=== PATIENT | female | born 1990 | race Two or more races ===

== ENCOUNTER 2023-12-18 19:52 | Emergency (ER) | payer BC, OTHER ==
[~2023-12-18] VITALS: Ht 165.1 cm; Wt 67.2 kg
[2023-12-18] MEDS: ACETAMINOPHEN 500 MG TAB PO ONE (20:10)
[2023-12-18 20:33] LABS: COVID19 ANTIGEN SOFIA FIA NEGATIVE (NEGATIVE)
[2023-12-18 20:35] LABS: Rapid Influenza A Negative (Negative); Rapid Influenza B Positive (Negative)
[2023-12-19 01:40] VITALS: BP 140/74; PULSE 78; RESP 20; TEMP 98.8; O2SAT 98
[2023-12-19] MEDS ORDERED: ACET500T58 PO (01:43)
[2023-12-19] MEDS ORDERED: OSEL75CA5 PO (01:43)
== END 2023-12-19 02:07 | disposition home or self-care (01) ==
LOC: ER 19:52
DX: J10.1 Influenza due to other identified influenza virus with other respiratory manifestations (principal); Z20.822 Contact with and (suspected) exposure to COVID-19
CPT/HCPCS: 36415; 87426; 87804

== ENCOUNTER 2025-04-08 07:05 | Inpatient (IN) | payer BC ==
[~2025-04-08] VITALS: Ht 165.1 cm; Wt 70.1 kg
[~2025-04-08 07:05] MED LIST: ACET500T58 PO; OSEL75CA5 PO
--- NOTE | 2025-04-08 07:30 | ED.PDOC ---
GI ASSESSMENT HPI Comments This is a 35 year old female presenting to the ED with chief complaint of abdominal pain. Patient reports that she has been experiencing diffuse abdominal pain with associated fevers, nausea, vomiting, and watery diarrhea since 2am this morning. Patient relays that her pain is intermittent at this time. Patient denies any chills, dizziness, headache, syncope, dysuria, flank pain, chest pain, or SOB. Chief Complaint: Abdominal Pain Time Seen by MD: 07:28 Primary Care Provider: UNKNOWN Reviewed Notes: Nurses Notes, Medications, Allergies Allergies: Coded Allergies: NO KNOWN ALLERGIES (Unverified , 12/18/23) Home Meds Active Scripts Acetaminophen (Acetaminophen) 500 Mg Tab, 500 MG PO Q4HPRN, #30 TAB 0 Refills Prov:JUAN PERALTA 12/19/23 Oseltamivir Phosphate (Tamiflu) 75 Mg Cap, 1 CAP PO BID for 5 Days, #10 CAP 0 Refills Prov:JUAN PERALTA 12/19/23 Information Source: Patient Mode of Arrival: Ambulatory Timing: Hours Duration: Since onset Prehospital treatment: None Quality: Sharp Vomitus: Watery Stool: Watery Severity: Moderate Recent: None Recent Hx of: None Pain Location: Diffuse Modifying Factors: Nothing Associated sign and symptoms: Nausea, Vomiting, Diarrhea, Abdominal Pain Past Medical History PAST MEDICAL HISTORY: Denies Surgical History: Denies all surgeries PHOTO MASK CLEANER History: No Pertinent PHOTO MASK CLEANER History Family History Family History: Reviewed,noncontributory to illness, Unknown Social History Smoker: Non-Smoker Alcohol: Denies ETOH Use Drugs: Denies Drug Use Lives In: Home Constitutional: reports: fever; denies: chills, diaphoresis, fatigue, malaise, sweats, weakness, others EENTM: denies: blurred vision, double vision, ear bleeding, ear discharge, ear drainage, ear pain, ear ringing, eye pain, eye redness, hearing loss, mouth pain, mouth swelling, nasal discharge, nose bleeding, nose congestion, nose pain, photophobia, tearing, throat pain, throat swelling, voice changes, others Respiratory: denies: cough, hemoptysis, orthopnea, SOB at rest, shortness of breath, SOB with excertion, stridor, wheezing, others Cardiovascular: denies: chest pain, dizzy spells, diaphoresis, Dyspnea on exertion, edema, irregular heart beat, left arm pain, lightheadedness, palpitations, PND, syncope, others Gastrointestinal: reports: abdominal pain, diarrhea, nausea, vomiting; denies: abdomen distended, blood streaked bowels, constipated, dysphagia, difficulty swa llowing, hematemesis, melena, poor appetite, poor fluid intake, rectal bleeding, rectal pain, others Genitourinary: denies: abnormal vagina bleeding, burning, dyspareunia, dysuria, flank pain, frequency, hematuria, incontinence, pain, , vagina discharge, urgency, others Neurological: denies: dizziness, fainting, headache, left sided numbness, left sided weakness, numbness, paresthesia, pre-existing deficit, right sided numbness, right sided weakness, seizure, speech problems, tingling, tremors, weakness, others Musculoskeletal: denies: back pain, gout, joint pain, joint swelling, muscle pain, muscle stiffness, neck pain, others Integumetry: denies: bruises, change in color, change in hair/nails, dryness, laceration, lesions, lumps, rash, wounds, others Allergic/Immunocompromised: denies: Difficulty Healing, Frequent Infections, Hives, Itching, others Hematologic/Lymphatic: denies: anemia, blood clots, easy bleeding, easy bruising, swollen glands, others Endocrine: denies: excessive hunger, excessive sweating, excessive thirst, excessive urination, flushing, intolerance to cold, intolerance to heat, un explained weight gain, unexplained weight loss, others Psychiatric: denies: anxiety, bipolar disorder, depression, hopeless, panic disorder, schizophrenia, sleepless, suicidal, others All Other Systems: Reviewed and Negative Physical Exam General Appearance: Moderate Distress, Normal HEENT: Normal ENT Inspection, Pharynx Normal, TMs Normal Neck: Full Range of Motion, Non-Tender, Normal, Normal Inspection Respiratory: Chest Non-Tender, Lungs Clear, No Accessory Muscle Use, No Respiratory Distress, Normal Breath Sounds Cardiovascular: No Edema, No JVD, No Murmur, No Gallop, Normal Peripheral Pulse s, Regular Rate/Rhythm Breast Exam: Deferred Gastrointestinal: No Organomegaly, Non Tender, No Pulsatile Mass, Normal Bowel Sounds, Soft Genitalia: Deferred Pelvic: Deferred Rectal: Deferred Extremities: No calf tenderness, Normal capillary refill, Normal inspection, Normal range of motion, Non-tender, No pedal edema Musculoskeletal : Apperance: Normal Neurologic: Alert, circuit design engineer II-XII nml as Tested, No Motor Deficits, Normal Affect, Normal Mood, No Sensory Deficits Cerebellar Function: Normal Reflexes: Normal Skin: Dry, Normal Color, Warm Peripheral Pulses: 3+ Radial (R), 3+ Radial (L) Lymphatic: No Adenopathy Was a procedure done? Was a procedure done?: No GI differential Dx Differential Diagnosis: Constipation, Diverticular disease, Esophagitis, Gastritis/PUD, Gastroenteritis, UTI, Dehydration, Electrolyte Imbalance, Food Poisoning, Bacterial, Viral X-Ray, Labs, Meds, VS Vital Signs Date Time Temp Pulse Resp B/P (MAP) Pulse Ox O2 Delivery O2 Flow Rate FiO2 04/08/25 08:09 97.9 84 19 101/69 (80) 97 97.9 04/08/25 08:09 84 19 97 Room Air 04/08/25 07:12 97.7 93 18 113/83 100 97.7 Lab Test 04/08/25 08:00 04/08/25 07:30 04/08/25 07:11 Range/Units Urine Test Negative Negative White Blood Count 19.4 H 4.4-10.8 10^3/uL Red Blood Count 5.33 H 4.0-5.20 10^6/uL Hemoglobin 16.1 12.2-16.2 g/dL Hematocrit 46.4 H 36.0-46.0 % Mean Corpuscular Volume 87.1 80.0-100.0 fL Mean Corpuscular Hemoglobin 30.2 28.0-32.0 pg Mean Corpuscular Hemoglobin Concent 34.7 32.0-36.0 g/dL Red Cell Distribution Width 12.7 11.8-14.3 % Platelet Count 278 140-450 10^3/uL Mean Platelet Volume 8.3 6.9-10.8 fL Neutrophils (%) (Auto) 82.7 H 37.0-80.0 % Lymphocytes (%) (Auto) 11.6 10.0-50.0 % Monocytes (%) (Auto) 4.9 0.0-12.0 % Eosinophils (%) (Auto) 0.5 0.0-7.0 % Basophils (%) (Auto) 0.3 0.0-2.0 % Neutrophils # (Auto) 16.1 H 1.6-8.6 10 ^3/uL Lymphocytes # (Auto) 2.3 0.4-5.4 10 ^3/uL Monocytes # (Auto) 0.9 0-1.3 10 ^3/uL Eosinophils # (Auto) 0.1 0-0.8 10 ^3/uL Basophils # (Auto) 0.1 0-0.2 10 ^3/uL Nucleated Red Blood Cells 0.4 % Sodium Level 140 136-145 mmol/L Potassium Level 4.0 3.5-5.1 mmol/L Chloride Level 109 H 98-107 mmol/L Carbon Dioxide Level 21 20-31 mmol/L Anion Gap 10 5-15 Blood Urea Nitrogen 10 9-23 mg/dL Creatinine 0.91 0.550-1.02 mg/dL Glomerular Filtration Rate Calc 83 >90 mL/min BUN/Creatinine Ratio 11.0 10.0-20.0 Serum Glucose 103 74-106 mg/dL Calcium Level 10.1 8.7-10.4 mg/dL Urine Color Light-yellow Yellow Urine Clarity Turbid H Clear Urine pH 5.0 5.0-9.0 Urine Specific [place] 1.023 1.001-1.035 Urine Protein Negative Negative Urine Ketones 1+ H Negative Urine Blood 1+ H Negative /uL Urine Nitrite Negative Negative Urine Bilirubin Negative Negative Urine Urobilinogen Normal Negative mg/dL Urine Leukocyte Esterase 2+ Negative /uL Urine RBC 13 0 - 4 /hpf Urine Microscopic WBC 11 H 0-5 /HPF Urine Squamous Epithelial Cells Few <5 /hpf Urine Uric Acid Crystals Few None Seen /hpf Urine Bacteria None seen None Seen /hpf Urine Hyaline Casts Few 0 - 2 /lpf Urine Mucus Few None Seen Urine Glucose Normal Normal mg/dL Current Medications Medications (Trade) Dose Ordered Sig/Pedro Luis Route Start Time Stop Time Status Last Admin Diphenoxylate HCl/ Atropine (Lomotil Tablet) 5 mg ONCE ONCE PO 04/08/25 07:45 04/08/25 07:46 DC 04/08/25 07:58 Ondansetron HCl (Zofran Po) 4 mg ONCE ONCE PO 04/08/25 07:45 04/08/25 07:46 DC 04/08/25 07:58 Sodium Chloride 1,000 ml @ 1,000 mls/hr Q1H ONCE IV 04/08/25 08:00 04/08/25 08:59 DC 04/08/25 08:16 Patient alert. Complaining of abdominal pain nausea vomiting diarrhea. Vitals stable. Answering questions. WBC elevated. Establish intravenous access. Was given fluids. Was given Zofran. Was given Lomotil. Was given Flagyl. Abdomen is soft. Continues to have abdominal pain. Explained to the patient. Continue monitoring. Was given Rocephin. Was given Flagyl. Time of 1ST Reevaluation: 08:27 Reevaluation 1ST: Improved Patient Education/Counseling: Diagnosis, Treatment Family Education/Counseling: No Family Present SEPSIS Sepsis Screen Date sepsis recognized/suspect: Apr 08, 2025 Time Sepsis recognized/suspect: 712 Recent Procedure: No On Antibiotic Therapy: No Respiratory Rate >20: No Heart Rate >90: Yes Temp<36 C (96.8 F) or >38.3 C: No SBP <90 or MAP <65 mmHG: No New Acute Mental Status Change: No Is the patient on CPAP, BIPAP,: No Physician Orders Ct Ab Pel Wo Con-No Oral Or Iv (04/08/25 07:57) Saline Lock (04/08/25 07:58) Vital Signs Date Time Temp Pulse Resp B/P (MAP) Pulse Ox O2 Delivery O2 Flow Rate FiO2 04/08/25 08:09 97.9 84 19 101/69 (80) 97 97.9 04/08/25 08:09 84 19 97 Room Air 04/08/25 07:12 97.7 93 18 113/83 100 97.7 Laboratory Tests Test 04/08/25 07:30 White Blood Count 19.4 10^3/uL (4.4-10.8) H Medications Medications Dose Ordered Sig/Pedro Luis Route Start Time Stop Time Status Last Admin Dose Admin Diphenoxylate HCl/ Atropine 5 mg ONCE ONCE PO 04/08/25 07:45 04/08/25 07:46 DC 04/08/25 07:58 Ondansetron HCl 4 mg ONCE ONCE PO 04/08/25 07:45 04/08/25 07:46 DC 04/08/25 07:58 Sodium Chloride 1,000 ml @ 1,000 mls/hr Q1H ONCE IV 04/08/25 08:00 04/08/25 08:59 DC 04/08/25 08:16 Departure 1 Departure Time of Disposition: 07:56 Impression: Primary Impression: Acute abdominal pain Additional Impression: Gastroenteritis Disposition: 09 ADMITTED INPATIENT Admit to: Med Surg Condition: Guarded Critical Care Note Critical Care Time?: Yes (90 min-critical care time only) Critical care comment: WBC elevated abdominal pain Stability Stability form required: No Heart Score Heart Score: Heart Score Response (Comments) Value History N/A 0 EKG N/A 0 Age N/A 0 Risk Factors N/A 0 Troponin N/A 0 Total 0 I personally scribed for JEANNINE BARBOUR MD ([email or web address]) on 04/08/25 at 07:30. Electronically submitted by Georgi Solorzano ([email or web address]). JEANNINE BARBOUR MD Apr 08, 2025 07:30
[2025-04-08 07:51] LABS: Hematocrit 46.4 % (36.0-46.0); Hemoglobin 16.1 g/dL (12.2-16.2); Mean Corpuscular Hemoglobin 30.2 pg (28.0-32.0); Mean Corpuscular Volume 87.1 fL (80.0-100.0); Nucleated Red Blood Cells % 0.4 %
[2025-04-08 07:55] LABS: Potassium 4.0 mmol/L (3.5-5.1); Sodium 140 mmol/L (136-145)
[2025-04-08 07:56] LABS: Anion Gap 10 (5-15); Carbon Dioxide 21 mmol/L (20-31)
[2025-04-08 07:57] LABS: Calcium 10.1 mg/dL (8.7-10.4); Chloride 109 mmol/L (98-107)
[2025-04-08] MEDS: DIPHENOXYLATE W/ATROPINE 2.5 MG TAB PO ONE (07:58)
[2025-04-08] MEDS: ONDANSETRON ODT 4 MG TAB PO ONE (07:58)
[2025-04-08 08:01] LABS: BUN/Creatinine Ratio 11.0 (10.0-20.0); Blood Urea Nitrogen 10 mg/dL (9-23); Glucose 103 mg/dL (74-106)
[2025-04-08] MEDS: SODIUM CHLORIDE 0.9% 1,000 ML IV ONE (08:16)
[2025-04-08 10:36] LABS: Urine Protein, UAD Negative (Negative)
--- NOTE | 2025-04-08 12:07 | DVH ---
Exam: CT CT AB PEL WO CON-NO ORAL OR IV History: enteritis Comparison Study: None Technique: Multidetector spiral CT of the abdomen and pelvis was performed from lung bases to pubic s ymphysis. Imaging was performed without intravenous contrast. Coronal and sagittal multiplanar reform ats were obtained from the axial data set by the technologist. Radiation Dose : 1. Abdomen/Pelvis: CTDIvol 6.93 mGy, DLP 6.93 mGy*cm. Findings: Evaluation of vasculature and solid organs is limited due to lack of intravenous contrast use. Lung Bases: Hazy right basilar ground-glass opacities. Visualized portions of the heart and pericardi um are unremarkable. Liver: The liver is normal in size. No focal lesions. Gallbladder and Biliary Tree: The gallbladder is unremarkable. No intrahepatic or extrahepatic biliar y ductal dilatation. Spleen: Unremarkable Pancreas: The pancreas is grossly unremarkable. Adrenal Glands: Unremarkable Kidneys: Kidneys are unremarkable without calculi or hydronephrosis. GI tract: The stomach is grossly normal in appearance. Fluid-filled small bowel loops with fat strand ing and mild wall thickening. The colon is unremarkable. No evidence of acute appendicitis. Peritoneum/mesentery/retroperitoneum. No evidence of free intraperitoneal air. No ascites. No evidenc e of suspicious lymphadenopathy. Abdominal Wall: Unremarkable. Vasculature: The visualized abdominal aorta is normal in size and caliber. Evaluation of abdominal a nd pelvic vessels is limited due to lack of intravenous contrast. Urinary Bladder: Grossly unremarkable for degree of distention. Pelvic Organs: Unremarkable Musculoskeletal: No aggressive focal bony lesions, acute fractures or dislocation. IMPRESSION: 1. Findings compatible with acute enteritis. No small bowel obstruction.
[2025-04-08] MEDS ORDERED: NITROGLYCERIN 0.4 MG SL TAB SL PRN (12:45)
[2025-04-08] MEDS ORDERED: MORPHINE SULFATE INJ 2 MG/ml SYRG IV PRN (12:45)
[2025-04-08] MEDS ORDERED: DOCUSATE SOD 100 MG CAP PO PRN (12:45)
[2025-04-08] MEDS ORDERED: ONDANSETRON HCL 4 MG/2 ML VIAL IV PRN (12:45)
[2025-04-08] MEDS: cefTRIAXone 1GM/50ML D5W 50 ML IV ONE (12:52)
[2025-04-08 12:57] VITALS: PULSE 81; RESP 12; O2SAT 96
--- NOTE | 2025-04-08 14:10 | DVHHP2 ---
History of Present Illness Reason for Visit: abd pain diarrhea History of Present Illness 35-year-old female with no known past medical history presents with generalized abdominal pain and fever since approximately 2:00 AM today. She denies diarrhea, nausea, vomiting, chest pain, or shortness of breath. Pain is intermittent and improves somewhat with movement. She ate a normal dinner last night with no changes in diet. She has had no recent sick contacts, travel, or antibiotic use. In the ED, vitals showed fever. Laboratory workup revealed leukocytosis (WBC 19.4), otherwise unremarkable CBC and BMP. Urinalysis showed ketones, blood, and trace bacteria. CT abdomen/pelvis demonstrated findings compatible with acute enteritis. She was started on IV fluids and pain control in the ED. will admit for iv hydration and antibotics Past Medical History See HPI above Past Surgical History See HPI above Family History Reviewed, non-contributory to the management of this case. Past Social History The patient lives at home, denies smoking, alcohol or illicit drugs abuse. Review of Systems Constitutional: No: Fever, Chills, Sweats, Weakness, Malaise, Other Eyes: No: Pain, Vision change, Conjunctivae inflammation, Eyelid inflammation, Other, Redness ENT: No: Ear pain, Ear discharge, Nose pain, Nose discharge, Nose congestion, Mouth pain, Mouth swelling, Throat pain, Throat swelling, Other Respiratory: No: Cough, Dry, Shortness of breath, SOB with excertion, Wheezing, Hemoptysis, Pleuritic Pain, Sputum, Wheezing, Other Cardiovascular: No: Chest Pain, Palpitations, Orthopnea, Paroxysmal Noc. Dyspnea, Edema, Lt Headedness, Other Gastrointestinal: Nausea, Vomiting, Abdominal Pain, Diarrhea; No: Constipation, Melena, Hematochezia, Other Genitourinary: No Dysuria, No Frequency, No Incontinence, No Hematuria, No Retention, No Other Musculoskeletal: No: other, neck pain, shoulder pain, arm pain, back pain, hand pain, leg pain, foot pain Skin: No: Rash, Lesions, Jaundice, Bruising, Other Neurological: No: Weakness, Numbness, Incoordination, Change in speech, Confusion, Seizures, Other Allergies: Coded Allergies: NO KNOWN ALLERGIES (Unverified , 12/18/23) Medications Current Medications Medications Dose Ordered Sig/Pedro Luis Route Start Time Stop Time Status Last Admin Dose Admin Sodium Chloride 1,000 ml @ 120 mls/hr Q8H20M IV 04/08/25 12:45 UNV Ondansetron HCl 4 mg Q4HP PRN IV 04/08/25 12:45 UNV Docusate Sodium 100 mg BIDPRN PRN PO 04/08/25 12:45 UNV Morphine Sulfate 2 mg Q4HPRN PRN IV 04/08/25 12:45 UNV Nitroglycerin 0.4 mg Q5MINP PRN SL 04/08/25 12:45 UNV Piperacillin Sod/ Tazobactam Sod 100 ml @ 25 mls/hr Q6HR IV 04/08/25 18:00 UNV Exam Vital Signs Vital Signs Date Time Temp Pulse Resp B/P (MAP) Pulse Ox O2 Delivery O2 Flow Rate FiO2 04/08/25 12:57 81 12 96 Room Air* 0 21 04/08/25 12:56 100/63 (75) 04/08/25 08:09 97.9 97.9 General Appearance: Alert, Oriented X3, Cooperative, No acute distress HEENT: Atraumatic, PERRLA, EOMI, Mucous membr. moist/pink Respiratory: Clear to auscultation, Normal air movement Cardiovascular: Regular rate, Normal S1, Normal S2, No murmurs Abdominal: Normal bowel sounds, Soft, No tenderness, No hepatospenomegaly, No masses Extremities: No clubbing, No cyanosis, No edema, Normal pulses, No tenderness/swelling Skin: No rashes, No breakdown, No significant lesion Neuro: Normal gait, Normal speech, Strength at 5/5 X4 ext, Normal tone, Sensation intact, Cranial nerves 3-12 NL Psych/Mental Status: Mental status NL, Mood NL Labs/Xrays CT scan showed enteritis I reviewed labs, imaging CT scan abdomen pelvis, EKG and all diagnostic studies on this patient from ED records and the medical chart Labs Test 04/08/25 08:00 04/08/25 07:30 04/08/25 07:11 Range/Units Urine Test Negative Negative White Blood Count 19.4 H 4.4-10.8 10^3/uL Red Blood Count 5.33 H 4.0-5.20 10^6/uL Hemoglobin 16.1 12.2-16.2 g/dL Hematocrit 46.4 H 36.0-46.0 % Mean Corpuscular Volume 87.1 80.0-100.0 fL Mean Corpuscular Hemoglobin 30.2 28.0-32.0 pg Mean Corpuscular Hemoglobin Concent 34.7 32.0-36.0 g/dL Red Cell Distribution Width 12.7 11.8-14.3 % Platelet Count 278 140-450 10^3/uL Mean Platelet Volume 8.3 6.9-10.8 fL Neutrophils (%) (Auto) 82.7 H 37.0-80.0 % Lymphocytes (%) (Auto) 11.6 10.0-50.0 % Monocytes (%) (Auto) 4.9 0.0-12.0 % Eosinophils (%) (Auto) 0.5 0.0-7.0 % Basophils (%) (Auto) 0.3 0.0-2.0 % Neutrophils # (Auto) 16.1 H 1.6-8.6 10 ^3/uL Lymphocytes # (Auto) 2.3 0.4-5.4 10 ^3/uL Monocytes # (Auto) 0.9 0-1.3 10 ^3/uL Eosinophils # (Auto) 0.1 0-0.8 10 ^3/uL Basophils # (Auto) 0.1 0-0.2 10 ^3/uL Nucleated Red Blood Cells 0.4 % Sodium Level 140 136-145 mmol/L Potassium Level 4.0 3.5-5.1 mmol/L Chloride Level 109 H 98-107 mmol/L Carbon Dioxide Level 21 20-31 mmol/L Anion Gap 10 5-15 Blood Urea Nitrogen 10 9-23 mg/dL Creatinine 0.91 0.550-1.02 mg/dL Glomerular Filtration Rate Calc 83 >90 mL/min BUN/Creatinine Ratio 11.0 10.0-20.0 Serum Glucose 103 74-106 mg/dL Calcium Level 10.1 8.7-10.4 mg/dL Urine Color Light-yellow Yellow Urine Clarity Turbid H Clear Urine pH 5.0 5.0-9.0 Urine Specific [place] 1.023 1.001-1.035 Urine Protein Negative Negative Urine Ketones 1+ H Negative Urine Blood 1+ H Negative /uL Urine Nitrite Negative Negative Urine Bilirubin Negative Negative Urine Urobilinogen Normal Negative mg/dL Urine Leukocyte Esterase 2+ Negative /uL Urine RBC 13 0 - 4 /hpf Urine Microscopic WBC 11 H 0-5 /HPF Urine Squamous Epithelial Cells Few <5 /hpf Urine Uric Acid Crystals Few None Seen /hpf Urine Bacteria None seen None Seen /hpf Urine Hyaline Casts Few 0 - 2 /lpf Urine Mucus Few None Seen Urine Glucose Normal Normal mg/dL SEPSIS Sepsis Screen Date sepsis recognized/suspect: Apr 08, 2025 Time Sepsis recognized/suspect: 1331 Recent Procedure: No On Antibiotic Therapy: No Respiratory Rate >20: No Heart Rate >90: No Temp<36 C (96.8 F) or >38.3 C: No SBP <90 or MAP <65 mmHG: No New Acute Mental Status Change: No Is the patient on CPAP, BIPAP,: No Physician Orders Ct Ab Pel Wo Con-No Oral Or Iv (04/08/25 07:57) Saline Lock (04/08/25 07:58) Admit (04/08/25 12:44) Allergies (04/08/25 12:44) Code Status (04/08/25 12:44) Sodium Chloride 0.9% (04/08/25 12:45) Oxygen Per Hour (04/08/25 12:44) Ondansetron Hcl (Zofran) (04/08/25 12:45) Complete Blood Count (04/09/25 04:00) Comprehensive Metabolic Panel (04/09/25 04:00) Condition: Stable (04/08/25 12:44) Clear Liq Diet (04/08/25 Lunch) BRP (04/08/25 12:44) Morphine Sulfate Injection (04/08/25 12:45) Sequential Compression Device (04/08/25 ) Nitroglycerin Sublingual (Ntrostat Subli (04/08/25 12:45) Stat Ekg For Chest Pain (04/08/25 12:44) Notify Md Of Changes From Base (04/08/25 12:44) Office Support Clerk For 24 Hours (04/08/25 12:44) Emergency Dysrhythmia Protocol (04/08/25 12:44) Rhythm Strips Once Every Shift (04/08/25 12:44) Oxygen By Nasal Cannula (04/08/25 12:44) Piperacillin-Tazob 3.375gm (Zosyn 3.375g (04/08/25 18:00) Piperacillin-Tazob 3.375gm (Zosyn 3.375g (04/08/25 12:45) Docusate Sodium Capsule (Colace Capsule) (04/08/25 12:45) Vital Signs Date Time Temp Pulse Resp B/P (MAP) Pulse Ox O2 Delivery O2 Flow Rate FiO2 04/08/25 12:57 81 12 96 Room Air* 0 21 04/08/25 12:56 81 12 100/63 (75) 96 04/08/25 08:09 97.9 84 19 101/69 (80) 97 97.9 04/08/25 08:09 84 19 97 Room Air 04/08/25 07:12 97.7 93 18 113/83 100 97.7 Laboratory Tests Test 04/08/25 07:30 White Blood Count 19.4 10^3/uL (4.4-10.8) H Medications Medications Dose Ordered Sig/Pedro Luis Route Start Time Stop Time Status Last Admin Dose Admin Ceftriaxone Sodium 50 ml @ 100 mls/hr ONCE ONCE IV 04/08/25 11:45 04/08/25 12:14 DC 04/08/25 12:52 100 MLS/HR Diphenoxylate HCl/ Atropine 5 mg ONCE ONCE PO 04/08/25 07:45 04/08/25 07:46 DC 04/08/25 07:58 5 MG Metronidazole 100 ml @ 100 mls/hr ONCE ONCE IV 04/08/25 11:45 04/08/25 12:44 DC 04/08/25 13:20 100 MLS/HR Ondansetron HCl 4 mg ONCE ONCE PO 04/08/25 07:45 04/08/25 07:46 DC 04/08/25 07:58 4 MG Sodium Chloride 1,000 ml @ 1,000 mls/hr Q1H ONCE IV 04/08/25 08:00 04/08/25 08:59 DC 04/08/25 08:16 1,000 MLS/HR Assessment/Plan Assessment/Plan 35 yr old male pmh Acute enteritis with leukocytosis, requiring IV antibiotics, IV hydration, and inpatient monitoring. Acute Enteritis found on ct scan Admit for IV antibiotics and hydration. Initiate empiric coverage with IV zosyn; Monitor for worsening abdominal pain, guarding, or peritoneal signs. ordered c diff acute Leukocytosis Likely secondary to infectious process. Monitor with daily CBC and clinical status. cont antibiotics zosyn for now acute Hematuria Possibly incidental or related to dehydration; monitor. Repeat urinalysis after treatment. acute Ketonuria related to dehydration Likely from poor oral intake and dehydration. Continue IV hydration, encourage oral fluids as tolerated. FEN / PPx Fluids: IV NS at maintenance rate Electrolytes: Daily BMP; replete abnormalities Nutrition: Regular diet as tolerated DVT Prophylaxis: SCDs GI Prophylaxis: Pantoprazole 40 mg IV daily f Disposition Admit to medical-surgical unit for IV antibiotics, IV hydration, and monitoring for clinical improvement or signs of complication. Plan discussed with: Patient My Orders Orders - PAULO MARTIN DNP Procedure Category Date Status Time Admit ADMIT 04/08/25 Transmitted 12:44 Allergies [facility] 04/08/25 In Process 12:44 Code Status CODE 04/08/25 Transmitted 12:44 Sodium Chloride 0.9% PHA 04/08/25 Logged 12:45 Oxygen Per Hour RT 04/08/25 Transmitted 12:44 Ondansetron Hcl PHA 04/08/25 Logged (Zofran) 12:45 Complete Blood Count LAB 04/09/25 Verified 04:00 Comprehensive LAB 04/09/25 Verified Metabolic Panel 04:00 Condition: Stable [facility] 04/08/25 In Process 12:44 Clear Liq Diet DIET 04/08/25 Transmitted Lunch BRP [facility] 04/08/25 In Process 12:44 Morphine Sulfate [facility] 04/08/25 Logged Injection 12:45 Sequential [facility] 04/08/25 In Process Compression Device Nitroglycerin [facility] 04/08/25 Logged Sublingual (Ntrostat 12:45 Stat Ekg For Chest [facility] 04/08/25 In Process Pain 12:44 Notify Md Of Changes [facility] 04/08/25 In Process From Base 12:44 Office Support Clerk For [facility] 04/08/25 In Process 24 Hours 12:44 Emergency Dysrhythmia [facility] 04/08/25 In Process Protocol 12:44 Rhythm Strips Once [facility] 04/08/25 In Process Every Shift 12:44 Oxygen By Nasal RT 04/08/25 Transmitted Cannula 12:44 Piperacillin-Tazob PHA 04/08/25 Logged 3.375gm (Zosyn 3.375g 18:00 Piperacillin-Tazob PHA 04/08/25 Logged 3.375gm (Zosyn 3.375g 12:45 Docusate Sodium PHA 04/08/25 Logged Capsule (Colace 12:45 Date of Service: Apr 08, 2025 Billing Provider: PAULO MARTIN DNP Common Visit Codes: [id number] INP/OBS CARE (HIGH) PAULO MARTIN DNP Apr 08, 2025 14:10
[2025-04-08] MEDS: PIPERACILLIN-TAZOB 3.375GM 100 ML IV ONE (15:59)
[2025-04-08] MEDS: SODIUM CHLORIDE 0.9% 1,000 ML IV SCH (15:59)
[2025-04-08 18:41] VITALS: BP 123/81; PULSE 92; RESP 20; TEMP 98; O2SAT 95
[2025-04-08] MEDS: PIPERACILLIN-TAZOB 3.375GM 100 ML IV SCH (19:30)
[2025-04-08 20:00] VITALS: PULSE 65; RESP 16
[2025-04-09] VITALS (8 sets, daily range): BP systolic 99–110; BP diastolic 66–71; PULSE 72–93; RESP 16–20; TEMP 97.8–99.1; O2SAT 96–99
[2025-04-09 06:11] LABS: Hematocrit 39.0 % (36.0-46.0); Hemoglobin 13.7 g/dL (12.2-16.2); Mean Corpuscular Hemoglobin 30.5 pg (28.0-32.0); Mean Corpuscular Volume 86.9 fL (80.0-100.0); Nucleated Red Blood Cells % 0.0 %
[2025-04-09 06:28] LABS: Alanine Aminotransferase 11 U/L (7-40); Albumin 3.7 g/dL (3.2-4.8); Alkaline Phosphatase 43 U/L (46-116); Anion Gap 10 (5-15); BUN/Creatinine Ratio 7.1 (10.0-20.0); Bilirubin, Total 1.0 mg/dL (0.2-1.0); Blood Urea Nitrogen 6 mg/dL (9-23); Calcium 8.7 mg/dL (8.7-10.4); Carbon Dioxide 22 mmol/L (20-31); Chloride 108 mmol/L (98-107); Glucose 85 mg/dL (74-106); Potassium 3.7 mmol/L (3.5-5.1); Sodium 140 mmol/L (136-145); Total Protein 5.9 g/dL (5.7-8.2)
--- NOTE | 2025-04-09 14:34 | DVHPNRES ---
Progress Note Date Seen: Apr 09, 2025 Resident Creating Document: MARLENE HAHN Medical Necessity Reason Pt with a Central, PICC or Fol: No Subjective Review of Systems Patient is a 35 years old female with past medical history of Chlamydia presents to ED for Abdominal pain, nausea vomiting. Patient report that she ate uncooked chicken yesterday 9:00 p.m., since then have developed abdominal pain and diarrhea and has had multiple episodes of vomiting and 11 BM watery over the last past 24 hours. She has had no recent antibiotic use, sick contact or travel. Urinalysis shows ketones, blood, and trace bacteria. CT abdomen/pelvis demonstrated finding compatible with acute enteritis. Initial WBC was 19.4 H. Past Medical History Chlamydia (diagnosed at 2011) Past Surgical History See HPI above Family History Reviewed, non-contributory to the management of this case. Past Social History The patient lives at home, denies smoking, alcohol or illicit drugs abuse. Patient seen and examined at bedside. Patient is alert and oriented to time, place person and responding to all questions. Eyes: No Pain, No Vision change, No Conjunctivae inflammation, No Eyelid inflammation, No Other, No Redness ENT: No Ear pain, No Ear discharge, No Nose pain, No Nose discharge, No Nose congestion, No Mouth pain, No Mouth swelling, No Throat pain, No Throat swelling, No Other Cardiovascular: No Chest Pain, No Palpitations, No Orthopnea, No Paroxysmal No Dyspnea, No Edema, No Lt Headedness, No Other Respiratory: No Cough, No Dry, No Shortness of breath, No SOB with exertion, No Wheezing, No Hemoptysis, No Pleuritic Pain, No Sputum, No Other Gastrointestinal: Nausea, Vomiting, Abdominal Pain, Diarrhea, No Constipation, No Melena, No Hematochezia, No Other Genitourinary: No Dysuria, No Frequency, No Incontinence, No Hematuria, No Retention, No Other Musculoskeletal: No other, No neck pain, No shoulder pain, No arm pain, No back pain, No hand pain, No leg pain, No foot pain Skin: No Rash, No Lesions, No Jaundice, No Bruising, No Other Objective vital signs Vital Sign Date Time Temp Pulse Resp B/P (MAP) Pulse Ox O2 Delivery O2 Flow Rate FiO2 04/09/25 12:59 98.7 93 20 104/68 (80) 99 98.7 04/09/25 08:00 Room Air* 0 98 21 Total Intake and Output 04/08/25 04/08/25 04/09/25 15:00 23:00 07:00 Intake Total 1150 ml 200 ml 250 ml Balance 1150 ml 200 ml 250 ml medications Current Medications Medications Dose Ordered Sig/Pedro Luis Route Start Time Stop Time Status Last Admin Dose Admin Sodium Chloride 1,000 ml @ 120 mls/hr Q8H20M IV 04/08/25 12:45 04/09/25 13:31 120 MLS/HR Ondansetron HCl 4 mg Q4HP PRN IV 04/08/25 12:45 Docusate Sodium 100 mg BIDPRN PRN PO 04/08/25 12:45 Morphine Sulfate 2 mg Q4HPRN PRN IV 04/08/25 12:45 Nitroglycerin 0.4 mg Q5MINP PRN SL 04/08/25 12:45 Piperacillin Sod/ Tazobactam Sod 100 ml @ 25 mls/hr Q6HR IV 04/08/25 18:00 04/09/25 11:39 25 MLS/HR Examination General Appearance: Cooperative. Well developed. Well nourished. NAD Head Exam: Normal inspection Neck Exam: Normal inspection. Non-tender. Normal alignment Pulmonary/Respiratory: Chest non-tender. Clear bilateral breath sounds, no crackles, no wheezing. Cardiovascular/Chest: Regular rate and rhythm. No murmurs. No JVD. Peripheral Pulses: 2+ Radial (R). 2+ Radial (L). 2+ Pedal (R). 2+ Pedal (L) Abdominal Exam: Normal bowel sounds. Soft. normal abdomen, no visible veins, Nontender. No hepatospenomegaly. No masses Ankle Exam: Negative ankle edema Lower extremities: Negative lower extremity edema Neuro/Mental Status: A&O x4. Coherent. Thoughts/Psych: Normal thought pattern. Appropriate mood and affect. Good judgement and insight Skin Exam: Normal inspection. Normal color. Warm. Dry laboratory and microbiology Laboratory Tests 04/09/25 05:15 Test 04/09/25 05:15 Range/Units Serum Glucose 85 74-106 mg/dL Labs and/or images reviewed: Labs reviewed by me, Image(s) reviewed by me Problem List/Assessment/Plan Problem List/Assessment/Plan # Acute intractable abdominal pain possible due to acute gastroenteritis # intractable Nausea and vomiting due to above -Abdomen/Pelvis CT- Findings compatible with acute enteritis. No small bowel obstruction. -Stool bacterial culture -0.9% NS 1000mL IV 120 MLS/HR -Zosyn extended infusion IV q6hr -Clear liquid diet -Morphine sulfate infection 2MG IV q3hprn -Nitroglycerin sublingual - ordered stool culture - ordered stool WBCs -continue Zofran 4 MG IV q3hp PRN # acute complicated UTI -Urine Clarity- Turbid. Urine WBC 11 H. Urine Ketones 1+. Urine Blood 1+ -Ceftriaxone IVPB Rocephin IV daily # microscopic Hematuria possibly related to dehydration -0.9% NS 1000mL IV 120 MLS/HR -Repeat urinalysis after treatment. # acute Ketonuria related to dehydration -0.9% NS 1000mL IV 120 MLS/HR -encourage oral fluids as tolerated. # FEN / PPx Fluids: IV NS at maintenance rate Electrolytes: Daily BMP; replete abnormalities Nutrition: Clear liquid diet as tolerated DVT Prophylaxis: SCDs GI Prophylaxis: Pantoprazole 40 mg IV daily Goals of care: Full code, discussed for >16 minutes on 04/09/25 Plan discussed with patient Plan discussed with Dr. Millard. Plan discussed with: Patient (RN), Other (RN) My Orders My Orders Orders - MARLENE HAHN RESIDENT Procedure Category Date Status Time Complete Blood Count LAB 04/10/25 Verified 04:00 Basic Metabolic Panel LAB 04/10/25 Verified 04:00 Date of Service: Apr 09, 2025 Billing Provider: SWAPNIL MILLARD MD Common Visit Codes: [id number] INP/OBS CARE(HIGH) Secondary Visit Codes: [id number] CARE PLAN 30 MINUTES MARLENE HAHN RESIDENT Apr 09, 2025 14:34 HANNY RACHEL RESIDENT Apr 09, 2025 17:26 SWAPNIL MILLARD MD Apr 10, 2025 20:59
[2025-04-10 01:00] VITALS: BP 91/63; PULSE 84; RESP 17; TEMP 97.6; O2SAT 98
[2025-04-10 05:00] VITALS: BP 91/62; PULSE 81; RESP 17; TEMP 97.5; O2SAT 98
[2025-04-10 05:52] LABS: Hematocrit 39.3 % (36.0-46.0); Hemoglobin 13.6 g/dL (12.2-16.2); Mean Corpuscular Hemoglobin 30.3 pg (28.0-32.0); Mean Corpuscular Volume 87.8 fL (80.0-100.0); Nucleated Red Blood Cells % 0.0 %
[2025-04-10 06:02] LABS: Potassium 4.1 mmol/L (3.5-5.1); Sodium 140 mmol/L (136-145)
[2025-04-10 06:03] LABS: Anion Gap 7 (5-15); Carbon Dioxide 23 mmol/L (20-31)
[2025-04-10 06:05] LABS: Calcium 8.4 mg/dL (8.7-10.4); Chloride 110 mmol/L (98-107)
[2025-04-10 06:08] LABS: BUN/Creatinine Ratio 12.0 (10.0-20.0); Blood Urea Nitrogen 9 mg/dL (9-23); Glucose 89 mg/dL (74-106)
[2025-04-10 08:00] VITALS: PULSE 83; RESP 18; O2SAT 99
[2025-04-10] MEDS: cefTRIAXone 1GM/50ML D5W 50 ML IV SCH (08:33)
[2025-04-10 09:00] VITALS: BP 103/67; PULSE 83; RESP 18; TEMP 98.4; O2SAT 99
[2025-04-10 13:00] VITALS: BP 103/71; PULSE 84; RESP 18; TEMP 97.9; O2SAT 99
--- NOTE | 2025-04-10 13:58 | DVHDSRES ---
Discharge Summary Date of Admission Resident Creating Document: HANNY RACHEL RESIDENT Apr 08, 2025 at 12:44 Date of Discharge: Apr 10, 2025 Admitting Diagnosis Acute intractable abdominal pain Labs/Diagnostic Data: Laboratory Results Test 04/10/25 05:14 04/09/25 05:15 04/08/25 08:00 04/08/25 07:11 White Blood Count 6.9 10^3/uL (4.4-10.8) Red Blood Count 4.48 10^6/uL (4.0-5.20) Hemoglobin 13.6 g/dL (12.2-16.2) Hematocrit 39.3 % (36.0-46.0) Mean Corpuscular Volume 87.8 fL (80.0-100.0) Mean Corpuscular Hemoglobin 30.3 pg (28.0-32.0) Mean Corpuscular Hemoglobin Concent 34.5 g/dL (32.0-36.0) Red Cell Distribution Width 13.0 % (11.8-14.3) Platelet Count 228 10^3/uL (140-450) Mean Platelet Volume 8.5 fL (6.9-10.8) Neutrophils (%) (Auto) 51.3 % (37.0-80.0) Lymphocytes (%) (Auto) 36.3 % (10.0-50.0) Monocytes (%) (Auto) 9.5 % (0.0-12.0) Eosinophils (%) (Auto) 2.2 % (0.0-7.0) Basophils (%) (Auto) 0.7 % (0.0-2.0) Neutrophils # (Auto) 3.5 10 ^3/uL (1.6-8.6) Lymphocytes # (Auto) 2.5 10 ^3/uL (0.4-5.4) Monocytes # (Auto) 0.7 10 ^3/uL (0-1.3) Eosinophils # (Auto) 0.1 10 ^3/uL (0-0.8) Basophils # (Auto) 0.1 10 ^3/uL (0-0.2) Nucleated Red Blood Cells 0.0 % Sodium Level 140 mmol/L (136-145) Potassium Level 4.1 mmol/L (3.5-5.1) Chloride Level 110 mmol/L (98-107) Carbon Dioxide Level 23 mmol/L (20-31) Anion Gap 7 (5-15) Blood Urea Nitrogen 9 mg/dL (9-23) Creatinine 0.75 mg/dL (0.550-1.02) Glomerular Filtration Rate Calc 105 mL/min (>90) BUN/Creatinine Ratio 12.0 (10.0-20.0) Serum Glucose 89 mg/dL (74-106) Calcium Level 8.4 mg/dL (8.7-10.4) Total Bilirubin 1.0 mg/dL (0.2-1.0) Aspartate Amino Transferase (AST) 16 U/L (13-40) Alanine Aminotransferase (ALT) 11 U/L (7-40) Alkaline Phosphatase 43 U/L (46-116) Total Protein 5.9 g/dL (5.7-8.2) Albumin 3.7 g/dL (3.2-4.8) Urine Test Negative (Negative) Urine Color Light-yellow (Yellow) Urine Clarity Turbid (Clear) Urine pH 5.0 (5.0-9.0) Urine Specific [place] 1.023 (1.001-1.035) Urine Protein Negative (Negative) Urine Ketones 1+ (Negative) Urine Blood 1+ /uL (Negative) Urine Nitrite Negative (Negative) Urine Bilirubin Negative (Negative) Urine Urobilinogen Normal mg/dL (Negative) Urine Leukocyte Esterase 2+ /uL (Negative) Urine RBC 13 /hpf (0 - 4) Urine Microscopic WBC 11 /HPF (0-5) Urine Squamous Epithelial Cells Few /hpf (<5) Urine Uric Acid Crystals Few /hpf (None Seen) Urine Bacteria None seen /hpf (None Seen) Urine Hyaline Casts Few /lpf (0 - 2) Urine Mucus Few (None Seen) Urine Glucose Normal mg/dL (Normal) Other Laboratory Tests 04/10/25 05:14 Brief Hx & Hospital Course: Patient is a 35 years old female with past medical history of Chlamydia presents to ED for Abdominal pain, nausea vomiting. Patient report that she ate uncooked chicken yesterday 9:00 p.m., since then have developed abdominal pain and diarrhea and has had multiple episodes of vomiting and 11 BM watery over the last past 24 hours. She has had no recent antibiotic use, sick contact or travel. Urinalysis shows ketones, blood, and trace bacteria. CT abdomen/pelvis demonstrated finding compatible with acute enteritis. Initial WBC was 19.4 H. Hospital course: Patient was started on IV hydration along with a liquid diet. Patient was also noted to have an acute complicated UTI for which he was treated with IV ceftriaxone. Stool studies along with stool cultures were sent. On day 1 patient was noted to have 11 bowel movements over 24 hours, IV fluids hydration was increased. On the day of discharge, patient appeared well and had stable vital signs, patient was able to tolerate a mechanical soft diet without any difficulty, patient noted having 3 bowel movements in 24 hours which were beginning to slowly formed. Her hospital course was uncomplicated. Patient was discharged home and was instructed to follow up with PCP at her earliest convenience. General Appearance: Cooperative. Well developed. Well nourished. NAD Head Exam: Normal inspection Neck Exam: Normal inspection. Non-tender. Normal alignment Pulmonary/Respiratory: Chest non-tender. Clear bilateral breath sounds, no crackles, no wheezing. Cardiovascular/Chest: Regular rate and rhythm. No murmurs. No JVD. Abdominal Exam: Normal bowel sounds. Soft. normal abdomen, no visible veins, Nontender. No hepatospenomegaly. No masses Ankle Exam: Negative ankle edema Lower extremities: Negative lower extremity edema Neuro/Mental Status: A&O x4. Coherent. Thoughts/Psych: Normal thought pattern. Appropriate mood and affect. Good judgement and insight Skin Exam: Normal inspection. Normal color. Warm. Dry Condition at Discharge: Good Final Diagnosis/Problems List # Acute intractable abdominal pain possible due to acute gastroenteritis # intractable Nausea and vomiting due to above # acute complicated UTI # microscopic Hematuria possibly related to dehydration # acute Ketonuria related to dehydration Discharge Disposition: Home Discharge Instruct/Medications Diet: See Comment Diet comment: continue soft diet, advance diet as tolerated Activity: No Restrictions, As Tolerated Follow Up/Referral: pls follow up with pcp Scheduled Acetaminophen (Acetaminophen), 500 MG PO Q4HPRN Discontinued Medications Oseltamivir Phosphate (Tamiflu), 1 CAP PO BID Discharge Statement: "Patient was advised to return to the ER or call 911 if any headaches, dizziness, shortness of breath, chest pain, abdominal pain, bleeding, fevers, or worsening of medical condition. Patient was counseled about treatment plan, medications, possible side effects, patientverbalized understanding. All questions were answered to the best of my ability. This discharge took greater then 30 minutes in planning, reviewing documentation, counseling the patient, and discussing with other team members." ASSESSMENT ASSESSMENT Assessment # Acute intractable abdominal pain possible due to acute gastroenteritis # intractable Nausea and vomiting due to above # acute complicated UTI # microscopic Hematuria possibly related to dehydration # acute Ketonuria related to dehydration Date of Service: Apr 10, 2025 Billing Provider: SWAPNIL PAYTON MD Common Visit Codes: [id number]-HBI/OBS DISCH DAY >30min HANNY RACHEL RESIDENT Apr 10, 2025 13:58 SWAPNIL PAYTON MD Apr 10, 2025 20:59
[2025-04-10 15:11] VITALS: BP 103/71; PULSE 84; RESP 18; TEMP 97.8; O2SAT 99
== END 2025-04-10 16:00 | disposition home or self-care (01) | DRG 392 ==
LOC: ER 07:05 → OVERFLOW 12:44 → EAST 18:30 → CENTRAL 21:11
PROVIDERS: ADMIT Internal Medicine Geriatric Medicine; ATTEND Internal Medicine Geriatric Medicine
DX: K52.9 Noninfective gastroenteritis and colitis, unspecified (principal); N39.0 Urinary tract infection, site not specified; E86.0 Dehydration; R31.9 Hematuria, unspecified; R82.4 Acetonuria
CPT/HCPCS: 36415; 74176; 80048; 80053; 81001; 81025; 85025; 96361; 96365; 96366; 96367; 99291; 99292; G0378; J2543; J3490; Q0162